=== PATIENT | female | born 1970 | race Caucasian/White ===

== ENCOUNTER 2022-09-18 17:56 | Emergency (ER) | payer BC, SELFPAY ==
[2022-09-18] MEDS ORDERED: Aspirin Chewable 81 MG TAB ONE (18:30)
[2022-09-18 18:40] LABS: #Basophils 0.1 thou/uL (0.0-0.2); #Eosinphils 0.4 thou/uL (0.0-0.7); #Lymphocytes 1.7 thou/uL (1.20-3.40); #Monocytes 0.6 thou/uL (0.11-0.59); #Neutrophils 3.9 thou/uL (1.40-6.50); %Basophils 1.1 % (0.0-1.0); %Eosinophils 6.5 % (0.0-10.0); %Lymphocytes 25.2 % (21.0-51.0); %Neutrophils 58.1 % (42.0-75.0); Hemoglobin 15.1 g/dL (12.0-16.0); Mean Corpuscular Hemoglobin 30.9 pg (27.0-31.0); Mean Corpuscular Volume 90.7 fl (78.0-98.0); Platelet Count 242 10x3/uL (130-400); RBC Distribution Width 11.1 % (11.5-14.5); Red Blood Cell (RBC) Count 4.88 mill/uL (4.20-5.40); White Blood Cell (WBC) Count 6.8 10x3/uL (4.8-10.8)
[2022-09-18] MEDS ORDERED: hydrOXYzine 25 MG/ML VIAL IM SCH (18:45)
[2022-09-18 19:00] LABS: ALT (SGPT) 30 U/L (8-55); AST (SGOT) 18 U/L (5-34); Albumin 4.3 g/dL (3.5-5.0); Alkaline Phosphatase 161 U/L (40-110); Anion Gap 14 mmol/L (10-20); BUN (Urea Nitrogen) 18 mg/dL (9.8-20.1); Bilirubin, Total 0.3 mg/dL (0.2-1.2); CK (CPK) 114 U/L (29-168); Calc. Creatinine Clearance 0 mL/min (70-130); Calcium 8.9 mg/dL (7.8-10.44); Carbon Dioxide 27 mmol/L (22-29); Chloride 105 mmol/L (98-107); Estimated GFR 59; Globulin 2.8 g/dL (2.4-3.5); Glucose 127 mg/dL (70-105); Lipase 17 U/L (8-78); Potassium 3.5 mmol/L (3.5-5.1); Protein, Total 7.1 g/dL (6.0-8.3); Sodium 142 mmol/L (136-145)
== END 2022-09-18 19:37 | disposition home or self-care (01) ==
LOC: ERS 17:56
DX: R07.89 Other chest pain (principal); F41.0 Panic disorder [episodic paroxysmal anxiety]
CPT/HCPCS: 71045; 80053; 82550; 83690; 83880; 84484; 85025; 85379; 93005; 96374; J3410

== ENCOUNTER 2023-04-03 12:41 | Emergency (ER) | payer BC ==
[2023-04-03] MEDS ORDERED: Morphine 4 MG/ML VIAL ONE (14:33)
[2023-04-03] MEDS ORDERED: Ketorolac Tromethamine 30 MG/ML VIAL ONE (15:24)
== END 2023-04-03 15:35 | disposition home or self-care (01) ==
LOC: ERS 12:41
DX: G50.0 Trigeminal neuralgia (principal)
CPT/HCPCS: 96372; 99283; J1885; J2270

== ENCOUNTER 2025-02-06 18:03 | Emergency (ER) | payer BC ==
[2025-02-06] MEDS ORDERED: HYDROcodone/Acetaminophen 7.5/325 mg Tablet ONE (19:57)
[2025-02-06] MEDS ORDERED: carBAMazepine 200 MG TAB PO SCH (20:30)
== END 2025-02-06 21:05 | disposition home or self-care (01) ==
LOC: ERS 18:03
DX: G50.0 Trigeminal neuralgia (principal)
CPT/HCPCS: 96372; 99282; J2270